=== PATIENT | female | born 1995 | race Caucasian/White ===

== ENCOUNTER 2020-10-17 09:27 | Inpatient (IN) | payer OTHER ==
[~2020-10-17] VITALS: Ht 160 cm; Wt 98.9 kg
[2020-10-17] MEDS ORDERED: LACTATED RINGER'S 1000 ML IV STA (10:18)
[2020-10-17] MEDS ORDERED: LR 1,000 ML IV SCH (10:18)
[2020-10-17] MEDS ORDERED: OXYTOCIN DRIP 30 UNITS in IV 1 EA IV SCH ×2 (10:30→17:08)
--- NOTE | 2020-10-17 10:38 | HPEPDOC ---
Obstetrical History & Physical General Date of Admission Oct 17, 2020 at 10:10 History of Present Illness 25 yo G1 @ 38+2 who presents for labor check and found to be in active labor. re ports SROM at 7 am with clear fluids. she reports regular movements. she is feeling contractions but they are not too painful. she has no other concerns. Information Provided By: Patient Age: 25 : 1 Care Care: Good Care Dating Final EDC for Daily Update: Oct 29, 2020 Final EDC by: LMP Estimated Date of Confinement: Oct 29, 2020 EGA at Admission: 38 (38+2) Antepartum Course Diagnos(e)s 1. Obesity- prepregancy BMI 31 2. Excessive weight gain in , #37lb 3. 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 BREAST: . ABDOMEN: Gravid and non-tender to touch. FETUS: Is vertex (VTX) by sterile vaginal examination (SVE) HEART RATE: Regular rate and rhythm. LUNGS: normal work of breathing EXTREMITIES: No edema. Deep tendon reflexes (DTRs) +2. SVE: 6/90/-1, SROM with clear fluids. Cephalic on exam Pertinent Laboratoy Data Blood Type: A+ RBC Antibody Screen: Negative HIV: Negative Hepatitis B: Negative Hepatitis C: Unknown Rapid Plasma Reagin: Nonreactive Rubella: Immune Varicella: Nonreactive Chlamydia/Gonorrhea: Negative Group B Streptococcus: Negative Cystic Fibrosis: Negative Anatomy Ultrasound Placenta Location: Right Lateral Normal Anatomy: Yes Estimated Weight (grams): 3500 Steroid Therapy Steroid Therapy: No Vaginal Examination Dilation: 6 cm Effacement: 90% Station: -1 Cervical Consistency: Soft Cervical Position: Anterior Presentation: Cephalic presentation Assessment Heart Rate (FHR): 150 Variability: Moderate Accelerations: Positive Decelerations: None Tocometer Contractions: Yes Frequency: regular, every 1-5 min. Duration: greater than 60 seconds Strength: palpated as moderate Multi-drug resistant Organism: No history of MDRO Assessment/Plan Assessment 25 yo G1 @ 38+2 who presents for labor check and found to be in active labor. SROM at 0700 am with clear fluids. GBS Neg, RH pos. EFW 3500g. APC 1. Obesity- prepregancy BMI 31 2. Excessive weight gain in , #37lb 3. Elevated BP on admission Plan Admit and orient. 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 Diet: Clear Group B Streptococcus (GBS) negative. Labs and intravenous (IV) per unit protocol. Counseled on Pitocin for augmentation of labor as needed. Lactated Ringers (LR): Bolus 1000 mL, then at 125 mL/hr. Anticipate [normal spontaneous delivery ). C-S as appropriate. Labor and Delivery Counseling We will deliver your baby through the vagina with possible assistance of forceps or vacuum device if needed for maternal or indications. Forceps and vacuum are devices that can assist with vaginal delivery when normal pushing efforts cannot achieve delivery on their own or when delivery is needed in an emergency for baby's well-being. Medications may be required to induce or augment (help) your labor in order to achieve a vaginal delivery. An episiotomy may be required to help your baby to delivery vaginally. You may also require repair of any lacerations or tears of your vagina or vulva that are caused by delivery. In some cases, emergencies can occur that require an emergency section delivery so quickly that there may not be enough time to stop and complete consent forms for section. Understand that if this occurs, your providers will discuss the need for a section with you before they proceed with surgery. section is the delivery of your baby through an incision in your abdomen. In some situations, section may be safer to mom and baby than continuing labor and is only performed when clinically indicated. Risks of vaginal delivery include but are not limited to: Bleeding, infection, injury to the vagina, pelvic structures, injury to baby, damage to the uterus, reactions to anesthesia, uterine rupture, risk of hysterectomy for life threatening bleeding, or . Medications used to induce or augment labor may increase your risk for infection, uterine tachysystole, uterine rupture, heart rate abnormalities, need for emergency delivery or possible hysterectomy, and hemorrhage. Additional risks for use of forceps and vacuum include: increased risk of perineal and vaginal lacerations, risk of urinary or bowel incontinence, increased risk of injury to baby with bruising, scratches, hematomas on the head, or intracranial bleeding. YE SIMONS MD Oct 17, 2020 10:34
[2020-10-17 11:19] LABS: HEMATOCRIT 36.5 % (36.0-47.0); MEAN CORPUSCULAR HEMOGLOBIN 28.3 pg (27.0-33.0); MEAN CORPUSCULAR HGB CONC 32.9 g/dl (32.0-36.5); MEAN CORPUSCULAR VOLUME 86.1 fl (80.0-96.0); PLATELET COUNT, AUTOMATED 217 10^3/uL (150-450); RED BLOOD COUNT 4.24 10^6/uL (4.00-5.40); WHITE BLOOD COUNT 13.3 10^3/uL (4.0-10.0)
[2020-10-17 11:43] LABS: ALT/SGPT 17 U/L (12-78); BILIRUBIN,TOTAL 0.2 MG/DL (0.2-1.0); CREATININE FOR GFR 0.67 MG/DL (0.55-1.30); GLOMERULAR FILTRATION RATE > 60.0 (>60); LDH LACTATE DEHYDROGENASE 230 U/L (84-246); URIC ACID 3.5 MG/DL (2.6-6.0)
[2020-10-17] MEDS ORDERED: PNV1TAB6 PO (11:46)
[2020-10-17] MEDS ORDERED: BENA25CA4 PO (11:46)
--- NOTE | 2020-10-17 12:21 | IPNPDOC ---
Obstetrical Progress Note Date of Service Oct 17, 2020 Subjective to room for assessment. contractions are now more painful and patient is requesting epidural. FHT: 140, Mod regan,+accels, -decels---cat I tracing toco: 4-5/10 SVE: 8/C/0 A/P Active labor. cat I tracing. progressing appropriately. can get epidural. anticipate . YE SIMONS MD Oct 17, 2020 12:21
[2020-10-17] MEDS ORDERED: fentaNYL 100 MCG/2 ML INJECTION (J3010) As Ordered ONE (12:36)
[2020-10-17] MEDS ORDERED: FENTANYL 2MCG/ML ROPIVACAINE 0.2% IN 0.9% NACL 100ML IVBAG As Ordered ONE (12:38)
[2020-10-17] MEDS ORDERED: ePHEDrine SULFATE 25 MG/5 ML(5MG/ML) SYRINGE IV PRN (13:00)
[2020-10-17] MEDS ORDERED: LACTATED RINGER'S 1000 ML IV PRN (13:00)
[2020-10-17] MEDS ORDERED: diphenhydrAMINE 50MG/ML VIAL (J1200) IV PRN (13:00)
[2020-10-17] MEDS ORDERED: REFRIGERATOR IV KEYS XX PRN (13:00)
[2020-10-17] MEDS ORDERED: EPIDURAL/PCA KEYS XX PRN (13:00)
[2020-10-17] MEDS ORDERED: FENTANYL/ROPIVACAINE/NACL BAG 100 ML EPIDURAL SCH (13:00)
[2020-10-17] MEDS ORDERED: EPIDURAL COMMENT XX SCH (13:00)
[2020-10-17] MEDS ORDERED: NALOXONE INJ 0.4MG/1ML VIAL (J2310 PER 1MG) IV PRN (13:00)
[2020-10-17] MEDS ORDERED: ONDANSETRON 4MG/2ML VIAL IV PRN (13:00)
--- NOTE | 2020-10-17 14:26 | IPNPDOC ---
Obstetrical Progress Note Date of Service Oct 17, 2020 Subjective To room for assessment. Patient is comfortable with epidural in place. feels some occasional pressure. FHT: 130, mod regan,+accels,-Decels--cat I tracing [place]" -01/27 SVE: C/C/+2. A/P CAT I Tracing. first stage of labor complete. will start pushing shortly. an ticipate . YE SIMONS MD Oct 17, 2020 14:26
--- NOTE | 2020-10-17 17:14 | DNPDOC ---
[facility] Delivery Note Delivery Note DATE OF DELIVERY: 10/17/2020 PREDELIVERY DIAGNOSIS: 38-2/7 weeks' gestation and labor. POST DELIVERY DIAGNOSIS: Delivered. 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 Ye Simons ANESTHESIA: epidural ESTIMATED BLOOD LOSS: 200 mL. FINDINGS: 6 pound 13 ounce ( 3080g) male infant, Score 8/9, nuchal cord times 1. DELIVERY SUMMARY: Patient is a 25-year-old 1 now para1 who was admitted to labor and delivery in active labor. She progressed to C/C/+2 and with good maternal effort delivered a viable . The infants head delivered OA and the head was allowed to spontaneously restitute HECTOR. loose nuchal cord noted and delivered through. anterior shoulders delivered with gentle downward traction followed by posterior shoulder and corpus without difficulty. Normal 3-vessel cord clamped x 2 and cut by FOB after 1 minute of delayed cord clamping. Spontaneous cry noted. Infant placed on maternal abdomen for [id number] Cord blood obtained. Placenta delivered spontaneously and inspection of the placenta demonstrated that it was intact. The cord insertion appeared normal. The uterus was cleared of all clots and debris. Fundal massage until firm. 30 units of Pitocin administered per protocol and the patient required no additional uterotonics. Inspection of cervix, perineum, and vaginal wall revealed a 2nd degree midline laceration, repaired in the usual fashion with 2-0 vicryl. hemostasis noted. Repeat uterine examination noted uterine tone to be adequate and firm. Mom and infant stayed in L&D in hemodynamic stable condition upon my departure. Sponge, lap and needle count correct x 2. YE SIMONS MD Oct 17, 2020 17:14
[2020-10-17] MEDS ORDERED: DOCUSATE SODIUM 100MG CAPSULE PO PRN (17:15)
[2020-10-17] MEDS ORDERED: ACETAMINOPHEN 500 MG TAB PO PRN (17:15)
[2020-10-17] MEDS ORDERED: BENZOCAINE 20% HEMORRHOIDAL OINTMENT 28GM TUBE TOP PRN (17:15)
[2020-10-17] MEDS ORDERED: ANUSOL HC CREAM 30GM TOP PRN (17:15)
[2020-10-17] MEDS ORDERED: MEASLES,MUMPS,RUBELLA VACCINE INJ (MMR-II) (90707) SC SCH (17:15)
[2020-10-17] MEDS ORDERED: IBUPROFEN 800 MG TAB PO PRN (17:15)
[2020-10-17 20:41] VITALS: BP 128/67
[2020-10-18 05:30] VITALS: BP 148/70
--- NOTE | 2020-10-18 07:00 | IPNPDOC ---
Progress Note Date of Service: Oct 18, 2020 Day#: 1 Progress Note SUBJECT: Ana Luisa is a 25-year-old 2 now Para 1011 status post uncomplicated spontaneous vaginal delivery at 38-2/7 weeks of a 6 pound 13 ounce ( 3080g) male infant, Score 8/9, nuchal cord times 1. she had post vaginal laceration and repair, doing well day # 1. She has been ambulating, voiding spontaneously without issue and tolerating regular diet. Breast feeding without issue. Reports lochia is minimal . OBJECTIVE: VITAL SIGNS: Within normal limits, afebrile. Alert and oriented times three. normal work of breathing Heart rate: Regular rate and rhythm, Abdomen: Fundus firm at U-2. Soft, NTTP. [Minimal] lochia. ASSESSMENT: Ana Luisa is a 25-year-old 2 now Para 1011 status post uncomplicated spontaneous vaginal delivery at 38-2/7 weeks of a 6 pound 13 ounce ( 3080g) male infant, Score 8/9, nuchal cord times 1. she had post vaginal laceration and repair, doing well day # 1. Vitals within normal limits, afebrile, hemodynamically stable with no evidence of infection. PLAN: 1. Discharge to home tomorrow. 2. Tylenol and Motrin for pain. 3. Encourage breast feeding and ambulation. 4. undecided on contraception- educated on available options and risks of close interval 5. Routine PP visit in 6 weeks in clinic. 6. Discussed return precautions at length. VS, I&O, 24H, Fishbone Vital Signs/I&O Vital Signs Date Time Temp Pulse Resp B/P (MAP) Pulse Ox O2 Delivery O2 Flow Rate FiO2 10/18/20 05:30 98.8 88 17 148/70 (96) 96 Room Air I&O- Last 24 Hours up to 6 AM 10/18/20 06:00 Output Total 450 ml Balance -450 ml Laboratory Data 24H LABS Laboratory Tests 2 10/17/20 10:35: Serology Scanned Report Hepatitis B Testing 10/17/20 11:00: Nucleated Red Blood Cells % (auto) 0.0, Glomerular Filtration Rate > 60.0, Uric Acid 3.5, Total Bilirubin 0.2, Aspartate Amino Transf (AST/SGOT) 19, Alanine Aminotransferase (ALT/SGPT) 17, Lactate Dehydrogenase 230, Syphilis Serology NONREACTIVE 10/17/20 12:12: Coronavirus (COVID-19)(PCR) NEGATIVE CBC/BMP Laboratory Tests 10/17/20 11:00 YE SIMONS MD Oct 18, 2020 07:00
[2020-10-18] MEDS: FERROUS SULFATE 325MG TAB PO SCH (08:54)
[2020-10-18] MEDS: PRENATAL VITAMINS CHEWABLE TABLET PO SCH (08:54)
[2020-10-18] MEDS ORDERED: INFLUENZA QUADRIVALENT PF VACCINE 0.5ML SYRINGE IM ONE (09:00)
[2020-10-18 18:10] VITALS: BP 130/82
[2020-10-19 05:54] VITALS: BP 124/64
[2020-10-19] MEDS ORDERED: DOK1CAP7 PO (07:16)
[2020-10-19] MEDS ORDERED: IBUP80TA PO (07:16)
--- NOTE | 2020-10-19 08:59 | DSES ---
DISCHARGE SUMMARY DATE OF ADMISSION: 10/17/2020 DATE OF DISCHARGE: 10/19/2020 BRIEF HISTORY: This lady is a 25-year-old 2 para 2, admitted in active labor at 38 and 2 weeks of gestation. She had an epidural placed, delivered a livebirth male , 6 pounds, 13 ounces, 3080 grams, Apgars of 8 and 9 at 1 and 5 minutes respectively. The risks factors are her BMI is 31 and she had an excessive weight gain during her . On discharge her blood pressure is 124/64, respirations 18, pulse 103, temperature is 99.4. Her admitting hemoglobin was 12.0, hematocrit 36.5, and platelets were 217,000. We discussed phlebitis, cystitis, mastitis, endometritis, and cellulitis, diet, exercise, pain management, perineal, breast and wound care. Patient picked up her medications at [facility], has a six week checkup at [facility]. PHYSICAL EXAMINATION: The rest of the examination is unremarkable. Normocephalic, atraumatic. Neck: Full range of motion. Pupils equal and reactive to light. Distal pulses are symmetric. No evidence of DVT, PE or superficial phlebitis. Chest is clear bilaterally at bases. No wheezes or rhonchi. No CVA tenderness. Abdomen is soft. Four quadrant bowel sounds are noted. Uterus 2 below, lochia is moderate. Perineum is intact. She has no issues with urgency, nausea, vomiting, diarrhea or constipation. She is presently breast-feeding and doing well and is anxious to go home. All questions were answered, a 20 minute discussion. cc: [facility]
[2020-10-19] MEDS: FERROUS SULFATE 325MG TAB PO SCH (09:48)
[2020-10-19] MEDS: PRENATAL VITAMINS CHEWABLE TABLET PO SCH (09:48)
--- NOTE | 2020-10-23 08:33 | IPN ---
PROGRESS NOTE DATE: 10/18/2020 This patient requested circumcision of her male . After discussing risks and benefits of circumcision, the medical and the nonmedical indications, the penile block and aftercare; expressed understanding of penile block, aftercare, and bleeding. Signed the consent form. All questions were answered, 20 minute discussion. We await the clearance by the marine cargo surveyor.
== END 2020-10-19 18:00 | disposition home or self-care (01) | DRG 807 ==
LOC: M LDO 09:27 → M LDI 10:10 → M OBS 20:01
PROVIDERS: ADMIT Obstetrics & Gynecology; ATTEND Obstetrics & Gynecology
PROC: 10E0XZZ Delivery of Products of Conception, External Approach (ICD-10-PCS; principal; 2020-10-17)
PROC: 0KQM0ZZ Repair Perineum Muscle, Open Approach (ICD-10-PCS; 2020-10-17)
DX: O99.214 Obesity complicating childbirth (principal); Z37.0 Single live birth; E66.9 Obesity, unspecified; Z3A.38 38 weeks gestation of pregnancy; O69.81X0 Labor and delivery complicated by cord around neck, without compression, not applicable or unspecified; O70.1 Second degree perineal laceration during delivery

== ENCOUNTER 2021-05-10 14:10 | Emergency (ER) | payer OTHER ==
[~2021-05-10] VITALS: Ht 160 cm; Wt 86.7 kg
[~2021-05-10 14:10] MED LIST: BENA25CA4 PO; DOK1CAP7 PO; IBUP80TA PO; PNV1TAB6 PO
[2021-05-10 15:03] VITALS: BP 134/79
[2021-05-10 15:15] LABS: BASO % 0.2 % (0.0-1.0); EOS % 0.3 % (0.0-3.0); HEMATOCRIT 42.6 % (36.0-47.0); HEMOGLOBIN 14.4 g/dl (12.0-15.5); LYMPH # 1.9 10^3/uL (1.5-5.0); LYMPH % 18.4 % (24.0-44.0); MEAN CORPUSCULAR HEMOGLOBIN 28.7 pg (27.0-33.0); MEAN CORPUSCULAR HGB CONC 33.8 g/dl (32.0-36.5); MEAN CORPUSCULAR VOLUME 84.9 fl (80.0-96.0); MONO # 0.6 10^3/uL (0.0-0.8); MONO % 6.1 % (2.0-8.0); NEUTROPHILS # 7.7 10^3/uL (1.5-8.5); NEUTROPHILS % 74.7 % (36.0-66.0); PLATELET COUNT, AUTOMATED 253 10^3/uL (150-450); RED BLOOD COUNT 5.02 10^6/uL (4.00-5.40); WHITE BLOOD COUNT 10.3 10^3/uL (4.0-10.0)
[2021-05-10 15:47] LABS: HCG, SERUM QUALITATIVE NEGATIVE (NEGATIVE)
[2021-05-10 15:49] LABS: ALBUMIN 4.2 GM/DL (3.2-5.2); ALT/SGPT 22 U/L (12-78); BILIRUBIN,TOTAL 0.5 MG/DL (0.2-1.0); BLOOD UREA NITROGEN 7 MG/DL (7-18); CALCIUM LEVEL 9.4 MG/DL (8.5-10.1); CARBON DIOXIDE LEVEL 27 MEQ/L (21-32); CHLORIDE LEVEL 106 MEQ/L (98-107); GLOMERULAR FILTRATION RATE > 60.0 (>60); GLUCOSE, FASTING 108 MG/DL (70-100); POTASSIUM SERUM 3.8 MEQ/L (3.5-5.1); SODIUM LEVEL 140 MEQ/L (136-145); TOTAL PROTEIN 7.8 GM/DL (6.4-8.2)
--- NOTE | 2021-05-10 17:41 | ECGEPIP ---
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 Order Number: [id number] Reading MD: Clovis Tejeda Measurements Intervals [place] Rate: 85 P: 23 CT: 158 QRS: 12 QRSD: 100 T: 43 QT: 376 QTc: 447 Interpretive Statements Normal sinus rhythm Delayed anterior R wave progression Nonspecific T wave abnormality Comparison tracing not on file Electronically Signed on 05-10-2021 17:41:24 EDT by Clovis Tejeda
== END 2021-05-10 16:02 | disposition home or self-care (01) ==
LOC: M ED 14:10
DX: R42 Dizziness and giddiness (principal); R53.83 Other fatigue